=== PATIENT | male | born 1950 | race Caucasian/White ===

== ENCOUNTER 2022-07-30 00:33 | Emergency (ER) | payer MEDICARE, SELFPAY ==
--- NOTE | 2022-07-30 00:30 | DI.RAD_ITS ---
Exam(s) XR ANKLE RT COMPLETE EXAM: XR ANKLE RT COMPLETE CLINICAL HISTORY: right medial ankle pain after fall. TECHNIQUE: 2D digital imaging was performed of the right ankle. Three images were obtained. AP, la teral and oblique views were obtained. COMPARISON: No exams were available for comparison FINDINGS: BONES: There is an acute transverse fracture through the medial malleolus with 1/2 shaft's with later al displacement. There is also an oblique fracture through the distal fibula at the level of the ank le mortise. The distal fracture is displaced and angulated laterally. No bony destructive lesion is seen. There is a spur at the plantar surface of the calcaneus. JOINTS: There is lateral dislocation of the ankle joint approximately 1 cm. SOFT TISSUE: There is soft tissue swelling around the ankle. IMPRESSION: Bimalleolar fracture dislocation of the right ankle. DATA REPOSITORY: RADIATION DOSE DELIVERED:
--- NOTE | 2022-07-30 00:35 | ED.GENADUL_ITS ---
Discharge Plan Disposition Patient Disposition: Home Condition: Good Discharge Details Clinical Impression: Ankle fracture, right ED Provider: Favian Baker Home Meds and New Rx's Prescriptions: No Action lisinopril 20 mg Tablet 20 mg PO HS hydrochlorothiazide 25 mg Tablet 25 mg PO HS Discharge Instructions Instructions: Ankle Fracture (ED) Additional Instructions: At this time you have evidence of what is called a bimalleolar ankle fracture. This will likely require surgery. We have been splinted. Please do not bear any weight. Use your crutches at all times. 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 Please take Tylenol and Motrin as needed for pain. Keep the leg elevated. Take the oxycodone's as needed for breakthrough pain. If you notice any worsening of your symptoms, or any new symptoms such as vomiting, diarrhea, fever, chills, shortness of breath, chest pain, numbness, weakness, or fainting , please return immediately to the emergency department for reevaluation. Please follow up with your primary care provider as soon as possible for reassessment and reevaluation. As always, it was a pleasure participating in your medical care today. Medical Decision Making 72-year-old male with a past medical history of hypertension presents today for right ankle pain. Patient was walking earlier this evening at 5 PM when he twisted his ankle by stepping on it funny piece of ground. He felt a twist, and had mild pain at that time. Pain is continued throughout the night. [place] and he was not able to get help. Eventually the pain became quite severe and he contacted 911. Upon EMS arrival the patient was noted to have a deformity in his right foot at the ankle, and his foot was pulseless. Traction was applied, deformity was resolved and pulses returned. He was splinted and brought to the ER for further assessment. He currently admits to pain in the right ankle but he denies any numbness or tingling. No other complaints at this time. He denies any other trauma. He did not hit his head, arm or upper extremities, or other areas. Exam demonstrates well-appearing male, notable deformity/swelling/tenderness around the medial and lateral aspect of the right ankle. Pulses are intact, capillary refill is brisk. No other signs of trauma on the remainder of his exam. Concern is for potential fracture. We will get x-rays, treat the patient's pain, monitor closely and reassess. 2:17 AM X-ray shows evidence of what appears to be a bimalleolar fracture. No evidence of significant dislocation at this time. There is mild transition of the talus laterally without significant dislocation. Splint was applied with pressure medially. With both a stirrup and posterior splint. I did review the images with orthopedics/Dr. Pepper. 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 The patient would prefer to follow-up with orthopedics near his home. We did contact the patient's and discussed the case with her, and she understands the plan and need for follow-up. Patient does have home crutches and he would like to use these. The patient is otherwise stable. Repeat exam at time of discharge continues to demonstrate good distal pulses, good capillary refill. Patient's pain is controlled. Discussed red flags for which to return. I have esthelasinhan callahan reviewed the treatment plan and discharge instructions with the patient. I have addressed all patient concerns at this time. The patient was made aware of what symptoms to monitor for that would warrant a return to the emergency department. Discussed the plan with the patient, they demonstrate verbal understanding and agreement with our assessment and plan at this time. The documentation in this chart was dictated using [employer] dictation software. Please excuse any dictation errors. HPI General Date/Time Provider Initiated Documentation: 07/30/22 00:51 . HPI Narrative: 72-year-old male with a past medical history of hypertension presents today for right ankle pain. Patient was walking earlier this evening at 5 PM when he twisted his ankle by stepping on it funny piece of ground. He felt a twist, and had mild pain at that time. Pain is continued throughout the night. He was at his camp and he was not able to get help. Eventually the pain became quite severe and he contacted 911. Upon EMS arrival the patient was noted to have a deformity in his right foot at the ankle, and his foot was pulseless. Traction was applied, deformity was resolved and pulses returned. He was splinted and brought to the ER for further assessment. He currently admits to pain in the right ankle but he denies any numbness or tingling. No other complaints at this time. He denies any other trauma. He did not hit his head, arm or upper extremities, or other areas. Related Data Home Medications Medication Instructions Recorded Confirmed hydrochlorothiazide 25 mg tablet 25 mg PO HS 07/30/22 07/30/22 lisinopril 20 mg tablet 20 mg PO HS 07/30/22 07/30/22 Allergies Allergy/AdvReac Type Severity Reaction Status Date / Time No Known Allergies Allergy Unverified 07/30/22 00:48 Review of Systems All systems reviewed & are unremarkable except as noted in HPI and below PFSH All Active Problems (Updated 07/30/22 @ 02:34 by Favian Baker DO) Ankle fracture, right (Acute) Social History Smoking/Tobacco Use Status: Former Tobacco Use Quit Date: 07/30/22 Smoking risk assessment performed?: Yes Substance use type: does not use Do you feel safe at home: Yes Exam Narrative Exam Narrative: 1.Const: Well-nourished, Well-developed, appearing stated age 2.Eyes: PERRL, no conjunctival injection, and symmetrical lids. 3.ENT: Atraumatic external nose and ears. Moist MM. Neck: Symmetric, trachea midline, No thyromegaly. 4.CVS: +S1/S2, No murmurs or gallops. Peripheral pulses 2+ and equal in all extremities. Brisk capillary refill in all extremities. 5.RESP: Unlabored respiratory effort. Clear to auscultation bilaterally. No wheezes rales or rhonchi 6.GI: Soft, Nontender/Nondistended, No hepatosplenomegaly. No guarding or rebound. 7.MSK: Patient's right ankle demonstrates notable swelling laterally as well as some medial swelling and bruising as well. No pain in the midfoot or distal foot. No pain in the mid tibia/fibula. Dorsalis pedis pulses +2 bilaterally. Brisk capillary refill in all toes. 8.Skin: Warm, Dry. No rashes or lesions. 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 Sensation grossly intact, no focal neurologic deficits. 10.Psych: (AAO) x3. Appropriate mood and affect
[2022-07-30 00:36] VITALS: BP 113/65; PULSE 75; RESP 20; TEMP 36.7; O2SAT 97
[2022-07-30] MEDS: MORPHine 4 MG/ML SYR IVP (00:55)
--- NOTE | 2022-07-30 03:41 | DI.VRAD_ITS ---
PROCEDURE INFORMATION: Exam: XR Right Ankle Exam date and time: 07/30/2022 1:18 AM Age: 72 years old Clinical indication: Injury or trauma; Fall; Blunt trauma; Ankle; Right TECHNIQUE: Imaging protocol: Radiologic exam of the right ankle. Views: 3 or more views. COMPARISON: No relevant prior studies available. FINDINGS: Bones/joints: There is a comminuted acute fracture through the distal fibula. There is a transverse fracture through the base of the medial malleolus. The medial malleolar fragment, talus, and lateral malleolar fragment are laterally dislocated en block by approximately 10 mm relative to the tibial plafond. There is possibly an associated fracture through the lateral aspect of the distal tibia as well, uncertain finding. There is a large plantar heel spur arising from the inferior calcaneus. Soft tissues: There is soft tissue swelling at the ankle, most prominent overlying the lateral malleolus. IMPRESSION: Complex acute fracture dislocation at the ankle, as described. Dictated and Authenticated by: Adrian Peralta MD. Ordering:JOVANA Ballesteros MD
[2022-07-30 04:57] VITALS: BP 130/61; PULSE 86; RESP 24; O2SAT 94
== END 2022-07-30 04:50 | disposition home or self-care (01) ==
PROVIDERS: Emergency Provider Student in an Organized Health Care Education/Training Program; PCP Family Medicine
DX: S82.841A Displaced bimalleolar fracture of right lower leg, initial encounter for closed fracture (principal); Y99.8 Other external cause status; Y93.01 Activity, walking, marching and hiking
CPT/HCPCS: 96374; 99284; 73610; J2270